=== PATIENT | female | born 1990 | race African-American/Black ===

== ENCOUNTER 2018-04-21 18:45 | Emergency (ER) | payer SELFPAY ==
[~2018-04-21] VITALS: Ht 167.6 cm; Wt 79.0 kg
[~2018-04-21 18:45] MED LIST: doxycycline; flagyl
[2018-04-21] MEDS ORDERED: IPRATROPIUM BROMIDE (0.02%) 0.5MG/2.5ML NEB HHN STA (20:40)
[2018-04-21] MEDS ORDERED: ALBUTEROL (0.083%) 2.5MG/3ML NEB HHN STA (20:40)
[2018-04-21 22:15] VITALS: BP 136/82
== END 2018-04-21 22:47 | disposition home or self-care (01) ==
LOC: ER 18:45
DX: J40 Bronchitis, not specified as acute or chronic (principal); F17.200 Nicotine dependence, unspecified, uncomplicated; F15.10 Other stimulant abuse, uncomplicated
CPT/HCPCS: 71045; 81025; 93005; 99283; J7611

== ENCOUNTER 2020-03-03 10:12 | Emergency (ER) | payer MEDICAID ==
[~2020-03-03] VITALS: Ht 160 cm; Wt 73.0 kg
[2020-03-03 10:32] VITALS: BP 127/92
== END 2020-03-03 11:41 | disposition home or self-care (01) ==
LOC: ER 10:46
DX: L03.116 Cellulitis of left lower limb (principal); F15.10 Other stimulant abuse, uncomplicated
CPT/HCPCS: 99281; 99283

== ENCOUNTER 2020-09-13 01:24 | Emergency (ER) | payer MEDICAID, OTHER ==
[~2020-09-13] VITALS: Ht 167.6 cm; Wt 82.0 kg
[2020-09-13] MEDS ORDERED: ACETAMINOPHEN 500MG TABLET PO ONE (01:45)
[2020-09-13 01:55] LABS: BASOPHILS % 1.4 % (0.0-2.0); HEMATOCRIT. 28.9 % (36.0-48.0); HEMOGLOBIN. 9.3 g/dL (12.0-16.0); LYMPHOCYTES % 23.4 % (20.0-50.0); MEAN CORPUSCULAR HEMOGLOBIN 22.3 pg (28.0-32.0); MEAN CORPUSCULAR VOLUME 69.7 fL (81.0-99.0); MEAN PLATELET VOLUME 6.6 fl (7.4-10.4); MONOCYTES % 5.5 % (2.0-8.0); NEUTROPHILS % 67.7 % (40.0-76.0); PLATELET 413 x1000/uL (130-400); RED BLOOD CELL COUNT 4.14 mill/uL (4.2-5.4); RED CELL DISTRIBUTION WIDTH 19.7 % (11.6-14.6)
[2020-09-13 02:01] LABS: CHLORIDE 108 mEq/L (98-107)
[2020-09-13 02:02] LABS: CLARITY URINE CLEAR (CLEAR); COLOR URINE YELLOW (YELLOW); KETONES URINE TRACE (NEGATIVE); LEUKOCYTE ESTERASE URINE 1+ (NEGATIVE); NITRITE URINE NEGATIVE (NEGATIVE); OCCULT BLOOD URINE NEGATIVE (NEGATIVE); PH URINE 7.5 (4.5-8.0); PROTEIN URINE NEGATIVE (NEGATIVE); SPECIFIC GRAVITY URINE 1.019 (1.005-1.030)
[2020-09-13 02:05] LABS: ETHANOL BLOOD < 10 mg/dL
[2020-09-13 02:15] LABS: *AMPHETAMINES SCREEN URINE NEGATIVE (NEGATIVE); *BARBITURATES SCREEN URINE NEGATIVE (NEGATIVE)
[2020-09-13 02:16] LABS: *BENZODIAZEPINES SCREEN URINE NEGATIVE (NEGATIVE); *COCAINE SCREEN URINE NEGATIVE (NEGATIVE); CANNABINOID URINE SCREEN NEGATIVE (NEGATIVE); METHADONE URINE SCREEN NEGATIVE (NEGATIVE); OPIATES URINE SCREEN NEGATIVE (NEGATIVE); PHENCYCLIDINE URINE SCREEN NEGATIVE (NEGATIVE)
[2020-09-13 02:23] LABS: PLATELET ESTIMATE INCREASED
[2020-09-13 04:29] VITALS: BP 146/88
== END 2020-09-13 05:38 | disposition home or self-care (01) ==
LOC: ER 01:24
DX: R51.9 Headache, unspecified (principal); R03.0 Elevated blood-pressure reading, without diagnosis of hypertension; R11.10 Vomiting, unspecified; Z91.81 History of falling
CPT/HCPCS: 36415; 80053; 80305; 80320; 81003; 81025; 82962; 85025; 93005; 99285; G0480

== ENCOUNTER 2021-10-02 12:01 | Emergency (ER) | payer MEDICAID, OTHER ==
[~2021-10-02] VITALS: Ht 160 cm; Wt 69.0 kg
[2021-10-02 13:53] LABS: CLARITY URINE CLOUDY (CLEAR); COLOR URINE YELLOW (YELLOW); KETONES URINE NEGATIVE (NEGATIVE); LEUKOCYTE ESTERASE URINE 3+ (NEGATIVE); NITRITE URINE NEGATIVE (NEGATIVE); OCCULT BLOOD URINE NEGATIVE (NEGATIVE); PROTEIN URINE NEGATIVE (NEGATIVE); SPECIFIC GRAVITY URINE 1.017 (1.005-1.030); UROBILINOGEN URINE 0.2 E.U./dL (0.2-1.0)
[2021-10-02] MEDS ORDERED: FLUCONAZOLE 100MG TABLET PO ONE (14:00)
[2021-10-02] MEDS ORDERED: METRONIDAZOLE 500MG TABLET PO NR (14:00)
[2021-10-02] MEDS ORDERED: FLUCONAZOLE 150MG TABLET PO NR (14:15)
[2021-10-02] MEDS ORDERED: METR-167 MT (14:28)
[2021-10-02] MEDS ORDERED: NITR-87 MT (14:28)
[2021-10-02 15:06] VITALS: BP 139/83
== END 2021-10-02 15:08 | disposition home or self-care (01) ==
LOC: ER 12:01
DX: N76.0 Acute vaginitis (principal); N39.0 Urinary tract infection, site not specified; F15.10 Other stimulant abuse, uncomplicated; Z79.899 Other long term (current) drug therapy
CPT/HCPCS: 81003; 81025; 87210; 99283